=== PATIENT | female | born 1985 | race Caucasian/White ===

== ENCOUNTER 2022-03-27 18:08 | Observation (INO) | payer OTHER, SELFPAY ==
--- NOTE | ~2022-03-27 | US_ITS ---
EXAMINATION: US OB <=14 wk fetus w TV DATE: 03/28/2022 08:47 INDICATION: Retained products of conception TECHNIQUE: Real-time pelvic ultrasound utilizing both a transvaginal and transabdominal probe was pe rformed. The interpreting radiologist was not present for the study. COMPARISON: 03/27/2022 FINDINGS: The uterus measures 9.4 x 3.9 x 5.3 cm. There is no intrauterine gestational sac. The endometrial co mplex is thickened with heterogeneous internal echogenicity with vascular flow on Doppler color Doppl er consistent with retained products of conception. There is a smaller amount at the fundus with larg e amount at the lower uterine segment and extending into the dilated endocervical canal which measure s up to 1.7 cm in diameter. The bilateral ovaries are not visualized likely obscured by shadowing bowel gas. There is no free flu id in the pelvis. IMPRESSION: 1. Thickened endometrial complex and dilated endocervical canal, both containing heterogeneously echo genic material with internal vascular flow on color Doppler. No discernible intrauterine gestational sac and findings would be consistent with provided history of retained products of conception. Reviewed, dictated and finalized at location A. ER COASTER OPERATOR IMPRESSION: 1. Thickened endometrial complex and dilated endocervical canal, both containin g heterogeneously echogenic material with internal vascular flow on color Doppl er. No discernible intrauterine gestational sac and findings would be consisten t with provided history of retained products of conception.
--- NOTE | ~2022-03-27 | US_ITS ---
EXAMINATION: US OB <=14 wk fetus w TV INDICATION: vaginal bleeding, concern retained products. TECHNIQUE: Sonography of the pelvis was performed by transabdominal and transvaginal techniques. COMPARISON: None. RESULT: Uterus: Orientation: Anteverted. 9.0 x 3.8 x 4.1 cm. Heterogeneous vascular material in the endometr ial canal. Myometrium: homogeneous echogenicity. Gestation: - Intrauterine gestational sac: Not seen. Right ovary: 1.3 x 0.7 x 1.1 cm. Normal sonographic appearance with physiologic follicles. . . Left ovary: 1.9 x 1.5 x 1.6 cm. Normal sonographic appearance with physiologic follicles. . . Pelvis free fluid: None. IMPRESSION: Positive test with no intrauterine gestational sac visualized. Findings represent of unknown location and are suspicious for failed . Endometrial cavity debris with vascular flow, suspicious for retained products of conception. Recommend follow-up serial beta-hCG values. Ultrasound follow-up should be considered as clinically warranted . Reviewed, dictated and finalized at location K. ELLA REPAIRER IMPRESSION: Positive test with no intrauterine gestational sac visualized. Findin gs represent of unknown location and are suspicious for failed pregna ncy. Endometrial cavity debris with vascular flow, suspicious for retained prod ucts of conception. Recommend follow-up serial beta-hCG values. Ultrasound fo llow-up should be considered as clinically warranted .
[2022-03-27 18:12] VITALS: BP 133/80; PULSE 124; RESP 20; TEMP 36.1; O2SAT 99
--- NOTE | 2022-03-27 19:20 | PC.NURSE ---
Report received from ANTHONY Harris. Assumed care of patient at this time.
--- NOTE | 2022-03-27 19:27 | ED.FEMALEGU ---
HPI - Female Genitourinary General Chief complaint: Vaginal Bleeding Stated complaint: Vaginal Bleeding Time Seen by Provider: 03/27/22 18:54 History of Present Illness HPI Narrative: 36-year-old female presenting to the emergency department for evaluation of increased vaginal bleeding. Patient states she is approximately 5 weeks . Patient does follow-up with Dr. Concepcion. Patient reports she did have an ultrasound just on Monday. Patient reports it did show a subchorionic hemorrhage. Patient reports she was sent in to the emergency department by her HUMAN RESOURCES EXECUTIVE ASSISTANT. Patient reports she has had an increase in vaginal bleeding since Monday. Patient also reports she does have some lower abdominal pain. Related Data Allergies Allergy/AdvReac Type Severity Reaction Status Date / Time Penicillins Allergy Anaphylaxis Verified 03/27/22 18:15 Review of Systems Review of Systems: CONSTITUTIONAL: Denies fever, chills, or sweats. EYES: Denies visual changes, redness, or discharge. ENT: Denies rhinorrhea, congestion, sore throat, or otalgia. CARDIOVASCULAR: Denies chest pain, palpitations, or edema. RESPIRATORY: Denies cough or dyspnea. GASTROINTESTINAL: See HPI GENITOURINARY: See HPI SKIN: Denies rash or itching. MUSCULOSKELETAL: Denies back pain, joint pain, or myalgia. NEUROLOGIC: Denies headache, numbness, or weakness. PSYCHIATRIC: Denies anxiety or depression. Exam Narrative: APPEARANCE: Well appearing, no pain, no distress, well-nourished. HEAD: normocephalic, atraumatic. EYES: PERRLA/EOMI, conjunctivae clear. NOSE: Normal no drainage EARS:TMS clear with good light reflex. THROAT: Pharynx clear, no exudate. NECK: Supple. No adenopathy, no masses. RESPIRATORY: Airway patent, respirations nonlabored. Clear to auscultation bilaterally, no rales, rhonchi, wheezing. CARDIOVASCULAR: Regular rate and rhythm without murmurs rubs or gallops. ABDOMINAL: Patient did have approximately 30 cc of clot in the vaginal vault. This was removed along with what appeared to be the sac. No refilling of the vaginal vault. MUSCULOSKELETAL: Moves all extremities. Strength/ROM intact, No edema, No calf tenderness. NEURO: Alert. Cranial nerves II through XII intact. Grossly intact SKIN: Warm, dry. Normal Color Course Course Emergency Course: During the pelvic exam patient did pass tissue that appeared to be consistent with the sac. When initiating the exam patient did have a large clot within the vaginal vault but after clearing this clot and the sac patient had no significant rebleeding or refilling of the vaginal vault. Patient's hemoglobin did drop from 14-11.6 today. Patient's beta-hCG decreased from 10,000-40 200 today. I did discuss the case with the patient's HUMAN RESOURCES EXECUTIVE ASSISTANT and she has requested an emergent ultrasound to evaluate for retained products of conception. Reports she is still having some vaginal bleeding. Patient is denying pain at this time. Ultrasound shows no sac but does show endometrial 3 with vascular flow. Patient does have a prior history of an AV malformation. I discussed the patient with her HUMAN RESOURCES EXECUTIVE ASSISTANT and patient was admitted for observation. Patient was ordered Methergine 200 mg p.o. 3 times daily. Patient was also ordered repeat H&Hs. TXA was ordered. Repeat ultrasound for 7:30 in the morning and 2 units of type and screened blood was ordered to be held for the patient. Vital Signs Vital signs: Vital Signs Temperature 97.0 F L 03/27/22 18:12 Pulse Rate 124 H 03/27/22 18:12 Respiratory Rate 20 03/27/22 18:12 Blood Pressure 133/80 03/27/22 18:12 Pulse Oximetry 99 03/27/22 18:12 Oxygen Delivery Room Air 03/27/22 18:12 Temperature 98.2 F 03/27/22 22:11 Pulse Rate 74 03/28/22 04:07 Respiratory Rate 17 03/27/22 22:11 Blood Pressure 90/48 L 03/28/22 04:07 Pulse Oximetry 100 03/27/22 22:11 Oxygen Delivery Room Air 03/27/22 18:12 MDM - Female Genitourinary Lab
[2022-03-27 19:51] LABS: Basophils Absolute Auto 0.1 K/mm3 (0.0-0.1); Basophils Percent Auto 0.6 % (0.2-1.2); Eosinophils Absolute Auto 0.1 K/mm3 (0-0.3); Eosinophils Percent Auto 0.8 % (0-4.4); Hematocrit 34.9 % (37.0-47.0); Hemoglobin 11.6 g/dL (12.0-15.0); Immature Granulocyte Absolute 0.03 K/mm3 (0.00-0.031); Immature Granulocyte Percent A 0.3 % (0-0.5); Lymphocytes Absolute Auto 2.44 K/mm3 (0.9-3.2); Lymphocytes Percent Auto 25.3 % (18.3-44.2); Mean Corpuscular HGB Conc 33.2 g/dl (32-36); Mean Corpuscular Hemoglobin 30.5 pg (26-34); Mean Corpuscular Volume 91.8 fl (80-100); Mean Platelet Volume 9.5 fl (7.4-10.4); Monocytes Absolute Auto 0.7 K/mm3 (0.1-0.6); Monocytes Percent Auto 7.3 % (2.6-8.5); Neutrophils Absolute Auto 6.3 K/mm3 (1.3-6.7); Neutrophils Percent Auto 65.7 % (45.5-73.1); Platelet Count Result 208 k/mm3 (150-375); Red Cell Distribution Width 12.9 % (11.5-14.5); White Blood Count 9.7 K/mm3 (4.5-10.0)
[2022-03-27 20:02] LABS: Alanine Aminotransferase 18 U/L (6-35); Albumin Level 3.8 g/dL (3.5-5.1); Alkaline Phosphatase 58 U/L (38-126); Anion Gap 6 mmol/L (8-16); Aspartate Amino Transferase 21 U/L (14-36); Bilirubin,Total 0.2 mg/dL (0.2-1.3); Blood Urea Nitrogen 13 mg/dL (7-17); Calcium 9.1 mg/dL (8.4-10.2); Carbon Dioxide 26 mmol/L (22-30); Chloride 106 mmol/L (98-107); Estimated CRCL calculation 86 ml/min; Estimated Glomerular Filt Rate > 60; Glucose 101 mg/dL (65-110); Potassium 3.9 mmol/L (3.4-5.0); Sodium 138 mmol/L (137-145)
[2022-03-27 20:04] LABS: INR 1.1; Prothrombin Time 13.5 Seconds (11.1-14.7)
[2022-03-27 20:05] LABS: Partial Thromboplastin Time 25.5 SECONDS (22.3-36.8)
[2022-03-27] MEDS: SODIUM CHLORIDE 0.9% IV 1,000 ML 999 ML IV CONT (20:40)
--- NOTE | 2022-03-27 20:56 | PC.NURSE ---
Patient taken to US via w/c at this time.
--- NOTE | 2022-03-27 21:32 | PC.NURSE ---
2119 Called legislative assistant, she stated she will call back. [id number] Bala with legislative assistant office calls to get patient information and state that we can proceed with patient's wishes. This nurse informed him that the patient wishes for hospital disposition.
--- NOTE | 2022-03-27 22:06 | PC.NURSE ---
2384 Contacted [facility], spoke with Leslye,she gave referral number of [id number] and stated to go forward with patients wishes of send specimen to pathology.
[2022-03-27 22:11] VITALS: BP 100/62; PULSE 90; RESP 17; TEMP 36.8; O2SAT 100
[2022-03-27] MEDS: METHYLERGONOVINE MALEATE 0.2 MG TABLET PO (22:31)
[2022-03-27 23:05] LABS: SARS-CoV-2 RNA PCR Negative
[2022-03-28] VITALS: TEMP 36.8; BMI 20.7
[2022-03-28] MEDS: SODIUM CHLORIDE 0.9% IV 1,000 ML 125 ML IV CONT
[2022-03-28 00:02] VITALS: BP 103/58; PULSE 84
[2022-03-28] MEDS: ACETAMINOPHEN 500 MG TABLET 1000 MG PO (00:23)
[2022-03-28] MEDS: TRANEXAMIC ACID 1,000 MG/10 ML AMPUL 500 MG IV PUSH (00:25)
[2022-03-28 04:07] VITALS: BP 90/48; PULSE 74
[2022-03-28 04:27] LABS: Hematocrit 27.5 % (37.0-47.0); Hemoglobin 9.4 g/dL (12.0-15.0)
--- NOTE | 2022-03-28 06:46 | OBADM ---
This patient, Maria R Gong, admitted to the OB room OB Post 113 for observation. Patient/family oriented to hospital policies and general routines including ID bracelet, bed and alarms, visiting hours, pain management, procedures, bathroom and other care routines, personal items, smoking policy, room service/diet, and visiting hours. Patient/Family are encouraged to report perceived risks to care and to ask questions if they do not understand what they are told or what they should do.
[2022-03-28] MEDS: METHYLERGONOVINE MALEATE 0.2 MG TABLET PO (07:11)
[2022-03-28 07:35] VITALS: BP 102/52; PULSE 77
--- NOTE | 2022-03-28 09:20 | PM.HPGS ---
History of Present Illness History of Present Illness Chief complaint: Vaginal Bleeding Narrative: Maria R Gong is a 36 year old female at 5w6d with hx of AV malformation intrauterine s/p embolization Presented last night to ER for heavy vaginal bleeding. She found out she was pregnanct last week and seen in m y office for first OB on Monday. She had an HCG level of 14,000 at that time followed by spotting on Monday with repeat HCG and ultrasound Monday showing 5w6d IUP with no FHTs and HCG level dropped to 10,000. Monday, she called with heavy vaginal bleeding going through 4 pads per hour for 3 hrs and I directed her to the ER at [facility]. Hb Monday was 14, in ER was 11. HCG was decreasing further to 4000. However, ultrasound was suspicious for retained products so she was admitted, kept NPO and serial Hb ordered and desire to monitor bleeding. TXA given in ER around 10pm and the patient was started on methergine PO 200mg Q8 hrs. Since recieving TXA, bleeding has significantly slowed this morning. Repeat ultrasound continues to report vacular flow to heterogenous intrauterine products suspicious for retained products of conception. Repeat Hb at 4am was 9.4. While her pulse was initially elevated, this morning vitals are stable. ER doctor reported seeing a sac at the internal os and teasing it out. Ultrasound this morning suggests cervix dialated with products within. Review of Systems Review of Systems: No CP, SOB, F/S/c, N/V, pain is minimal, vb mild, -bv, -diarrhea/-constipation Constitutional: Comments: NC/AT Eyes: Comments: PERRLA Cardiovascular: Comments: RRR Respiratory: Comments: NOn labored respiration Gastrointestinal: Comments: Nontender, no rebound Musculoskeletal: Comments: no edema PMFSH Past Medical History Medical History (Updated 03/28/22 @ 09:46 by Velia Concepcion MD) AVM (arteriovenous malformation) 3 mo after D&C leading to hemorrhage and embolization in 2018 Incomplete bleeding stabilized post tranexamic acid. Ultrasound suggests continued retained products of conception. With history of intrauterine AVM, M phoned for transfer to tertiary care center for possible D&C. Surgical History Surgical History (Updated 03/28/22 @ 09:32 by Velia Concepcion MD) History of cholecystectomy Status post embolization of uterine artery uncertain if uterine artery or direct to AVM Social History Social History (Updated 03/28/22 @ 09:40 by Velia Concepcion MD) Social History: Works at [employer] Smoking status: Current every day smoker Tobacco type: cigarettes Alcohol intake: former Substance use: never Concerned About Future Housing: No Gender identity (if verbalized by the patient): Female Sexual Orientation (if Verbalized by the Patient): Straight or Heterosexual Meds Home Medications and Allergies Allergies Allergy/AdvReac Type Severity Reaction Status Date / Time Penicillins Allergy Anaphylaxis Verified 03/27/22 18:15 Vital Signs Vital Signs - 24 hr 03/27/22 18:12 03/27/22 22:11 03/28/22 00:02 Temperature 36.1 C L 36.8 C Pulse Rate 124 H 90 84 Respiratory Rate 20 17 Blood Pressure 133/80 100/62 103/58 L Pulse Oximetry 99 100 Oxygen Delivery Room Air 03/28/22 04:07 03/28/22 07:35 03/28/22 00:00 Temperature 36.8 C Pulse Rate 74 77 Respiratory Rate Blood Pressure 90/48 L 102/52 L Pulse Oximetry Oxygen Delivery Exam Narrative: NAD, PERRLA, normal weight Const: General: cooperative, healthy appearing, comfortable, no acute distress and well developed Nutritional Appearance: average body habitus and well nourished Limitations: no limitations HENMT: Head: normal to inspection, normocephalic and atraumatic Eyes: General: appearance normal, both eyes and all related structures Neck: Neck: normal visual inspection, full ROM and no lymphadenopathy Chest
[2022-03-28 09:59] LABS: Hematocrit 28.4 % (37.0-47.0); Hemoglobin 9.7 g/dL (12.0-15.0)
--- NOTE | 2022-03-28 10:55 | PC.NURSE ---
Report given to [facility] RN. Pt is to go to [facility], room 574.
--- NOTE | 2022-04-27 13:30 | P.DS_ITS ---
DS: Admitting Diagnosis Discharge Date 03/28/22 Admitting Diagnosis anemia, incomplete DS: Discharge Diagnosis Discharge Diagnosis (1) Anemia, posthemorrhagic, acute: Code(s): D62 - Acute posthemorrhagic anemia Status: Acute (2) Incomplete : Code(s): O03.4 - Incomplete spontaneous without complication Status: Acute Assessment and Plan: wetincomplete with AV malformation in uterus needing D&c. bleeding stable. [facility] t incase needs D& (3) Vaginal bleeding: Code(s): N93.9 - Abnormal uterine and vaginal bleeding, unspecified Status: Acute Plan to [facility] for further management now that bleeding is DS: Summary Hospital Course Reason for hospitalization: heavy bleeding with miscarriage . admitted for observation to stableize hemorrahge. ivf and medication management used. bleedinf slowed. cbc stablized. discussed with [facility] give av malformation. [facility] Hospital Course: admitted for observation due to heavy bleeding associated with incomplete . She has a uterine av malformation wtih hx of severe post miscarriage hemorrhage in previous . So with heavy flow curently, observation ordered to ensure bleeding stabilized. CBC did decrease however by qc manager had stabilized. IVF and medications used. Discussed case with [facility] who had cared for her during the last post miscarriage hemorrhage. They agreed if bleeding stable, to discharge to private vehicle and allow her to be directly addmited to their facility for further management of incomplete aborition with AV malfomation in uterus. Time Spent with Patient Time attestation: Total time spent providing and/or coordinating discharge services: DS: Data Data Completed and Pending Completed studies during hospitalization: Pending at discharge 03/27/22 21:10 Surgical [PTH] Routine Discharge Plan Discharge Attending physician on discharge: Velia Concepcion Consulting providers: Robbin Sandoval ; Nam Soni Discharging Clinician: Velia Concepcion Patient Disposition: Other Activity: pelvic rest Diet: NPO Discharge Instructions: Discharge from [facility]. Drive straight to [address] Do not eat or drink anything on the way. Stand Alone Forms: General Discharge Information Date of admission: 03/27/22 22:00 Primary Care Provider: Nilson,Mitchell Mejia Admitting Provider: Velia Concepcion Attending physician on admission: Velia Concepcion Condition: Serious
== END 2022-03-28 10:55 | disposition other institution (70) ==
LOC: ANHED 18:54 → ANHOBPP 22:29
PROVIDERS: Admitting Provider Obstetrics & Gynecology; Emergency Provider Emergency Medicine; PCP Family Medicine; Visit Provider Obstetrics & Gynecology
DX: O46.90 Antepartum hemorrhage, unspecified, unspecified trimester (principal); O03.4 Incomplete spontaneous abortion without complication; O26.891 Other specified pregnancy related conditions, first trimester; Q27.39 Arteriovenous malformation, other site; D62 Acute posthemorrhagic anemia; Z3A.01 Less than 8 weeks gestation of pregnancy
CPT/HCPCS: 36415; 76801; 76817; 80053; 84702; 85014; 85018; 85025; 85610; 85730; 86850; 86870; 86880; 86900; 86901; 86902; 86922; 88305; 96360; 96361; 96374; 99285; A9270; G0378; J7030; U0003; U0005